=== PATIENT | female | born 1965 | race Caucasian/White ===

== ENCOUNTER 2017-08-22 10:14 | Day surgery (SDC) | payer BC ==
[~2017-08-22 10:14] MED LIST: EPHEDrine SULFATE 50 MG/5 ML SYG
[2017-08-22] MEDS ORDERED: PROPOFOL 20 ML (12:34)
[2017-08-22] MEDS ORDERED: CEFAZOLIN 1 GM INJ (12:34)
[2017-08-22] MEDS ORDERED: FENTAnyl 50 MCG/ML VIAL (12:34)
[2017-08-22] MEDS ORDERED: MIDAZOLAM 1 MG/ML 2 ML INJ (12:34)
[2017-08-22] MEDS ORDERED: DEXAMETHASONE 4 MG/ML 1 ML INJ (12:40)
[2017-08-22] MEDS ORDERED: ONDANSETRON 4 MG INJ (13:00)
[2017-08-22] MEDS ORDERED: KETOROLAC 30 MG INJ (13:00)
[2017-08-22] MEDS ORDERED: METOCLOPRAMIDE 10 MG INJ (13:00)
[2017-08-22] MEDS: BUPIVACAINE 0.5% (SDV) 30 ML INJ (13:03)
[2017-08-22] MEDS ORDERED: ACETAMINOPHEN 1000MG/100ML IV 100 ML (13:08)
[2017-08-22] MEDS: BACITRACIN/POLYMYXIN 28.35 GM OINT TOP (13:20)
[2017-08-22] MEDS: DEXAMETHASONE 4 MG/ML 1 ML INJ ×2 (13:22→13:23)
[2017-08-22] MEDS ORDERED: METOCLOPRAMIDE 10 MG INJ IV (13:30)
[2017-08-22] MEDS ORDERED: OXYCODONE/ACETAMINOPHEN (5/325) TAB PO (13:30)
[2017-08-22] MEDS ORDERED: DIPHENHYDRAMINE 50 MG INJ IV (13:30)
[2017-08-22] MEDS ORDERED: LABETALOL HCL 20MG INJ IV (13:30)
[2017-08-22] MEDS ORDERED: MEPERIDINE 25 MG INJ IV (13:30)
[2017-08-22] MEDS ORDERED: ONDANSETRON 4 MG INJ IV (13:30)
[2017-08-22] MEDS ORDERED: HYDROmorphONE 1 MG/5 ML IV SYRINGE IV ×3 (13:30)
[2017-08-22] MEDS ORDERED: FENTAnyl 50 MCG/ML VIAL IV ×3 (13:30)
[2017-08-22] MEDS: OXYCODONE/ACETAMINOPHEN (5/325) TAB PO (16:28)
== END 2017-08-22 16:35 | disposition home or self-care (01) ==
LOC: SDS 10:14
DX: M20.41 Other hammer toe(s) (acquired), right foot (principal)
CPT/HCPCS: 28285; 84703